=== PATIENT | male | born 1980 | race Caucasian/White ===

== ENCOUNTER 2020-11-03 21:08 | Emergency (ER) | payer MEDICAID, OTHER ==
[~2020-11-03] VITALS: Ht 175.3 cm; Wt 100.0 kg
[~2020-11-03 21:08] MED LIST: LACT1CAP26 PO
[2020-11-03 21:25] VITALS: BP 146/96
[2020-11-03 22:14] LABS: CLARITY,URINE CLEAR (Clear); COLOR,URINE YELLOW (Yellow); GLUCOSE, URINE NEGATIVE (Neg); KETONES,URINE NEGATIVE (Neg); LEUKOCYTE ESTERASE ,URINE NEGATIVE (Neg); NITRITES, URINE NEGATIVE (Neg); OCCULT BLOOD,URINE TRACE-LYSED (Neg); PH,URINE 5.5 (4.8-8.0); PROTEIN,URINE TRACE mg/dl (Neg); UROBILINOGEN,URINE 0.2 E.U/dL (0.2-1.0)
[2020-11-03 22:39] LABS: UA COLLECTION TYPE CLN CATCH MIDSTREAM
[2020-11-03 22:49] LABS: MUCUS STRANDS MODERATE /LPF (Neg); WBC,URINE 0-4 /HPF (0-4)
[2020-11-03 22:50] LABS: BACTERIA,URINE FEW /HPF (Neg); SQUAMOUS EPITHELIAL CELL,UR FEW /LPF (FEW)
[2020-11-03] MEDS ORDERED: azithromycin 250mg tablet PO ONE (23:55)
[2020-11-03] MEDS ORDERED: CefTRIAXone 250MG IM Kit w/LIDOcaine IM ONE (23:55)
[2020-11-03] MEDS ORDERED: CefTRIAXone 1000mg IM Kit (w/lidocaine diluent) IM STA (23:57)
[2020-11-04] MEDS ORDERED: azithromycin 250mg tablet PO ONE
== END 2020-11-04 01:03 | disposition home or self-care (01) ==
LOC: ER 21:10
DX: A64 Unspecified sexually transmitted disease (principal); Z72.89 Other problems related to lifestyle; F12.90 Cannabis use, unspecified, uncomplicated; Z79.899 Other long term (current) drug therapy
CPT/HCPCS: 36415; 81001; 87491; 87591; 96372; 99283; J0696; 86592

== ENCOUNTER 2021-03-03 16:46 | Emergency (ER) | payer MEDICAID, OTHER ==
[~2021-03-03] VITALS: Ht 172.7 cm; Wt 106.8 kg
[2021-03-03 17:32] VITALS: BP 136/94
[2021-03-03] MEDS ORDERED: HYDR-3972 PO (17:43)
[2021-03-03] MEDS ORDERED: AMOX-580 PO (17:43)
== END 2021-03-03 18:26 | disposition home or self-care (01) ==
LOC: ER 16:46
DX: K04.7 Periapical abscess without sinus (principal); K08.89 Other specified disorders of teeth and supporting structures; F12.90 Cannabis use, unspecified, uncomplicated; Z72.89 Other problems related to lifestyle; Z79.2 Long term (current) use of antibiotics; Z79.899 Other long term (current) drug therapy
CPT/HCPCS: 99283